=== PATIENT | female | born 1970 | race African-American/Black ===

== ENCOUNTER 2018-02-09 11:19 | Emergency (ER) | payer OTHER, MEDICAID | END 2018-02-09 11:51 | disposition home or self-care (01) | LOC: E/R 11:51 | DX: M54.9 Dorsalgia, unspecified (principal); I10 Essential (primary) hypertension; F17.210 Nicotine dependence, cigarettes, uncomplicated | CPT/HCPCS: 99284; Z7502 ==

== ENCOUNTER 2018-09-07 08:34 | Emergency (ER) | payer OTHER ==
[2018-09-07] MEDS: HYDROmorphONE 2 MG/ML SYG IM (11:20)
[2018-09-07] MEDS: ONDANSETRON (ODT) 4 MG TAB ODT (11:20)
== END 2018-09-07 13:52 | disposition home or self-care (01) ==
LOC: E/R 08:34
DX: M54.16 Radiculopathy, lumbar region (principal); M54.42 Lumbago with sciatica, left side; M54.41 Lumbago with sciatica, right side; R40.2252 Coma scale, best verbal response, oriented, at arrival to emergency department; R40.2142 Coma scale, eyes open, spontaneous, at arrival to emergency department; R40.2362 Coma scale, best motor response, obeys commands, at arrival to emergency department; I10 Essential (primary) hypertension; F17.210 Nicotine dependence, cigarettes, uncomplicated
CPT/HCPCS: 72131; 96372; 99285-25

== ENCOUNTER 2019-02-04 15:29 | Emergency (ER) | payer MEDICAID, OTHER ==
[2019-02-04] MEDS: ACETAMINOPHEN 325 MG TAB PO (17:08)
[2019-02-04] MEDS: IBUPROFEN 400 MG TAB PO (17:08)
[2019-02-04] MEDS: IPRATROPIUM (NEB) 0.5 MG/2.5 ML AMP NEB (17:41)
[2019-02-04] MEDS: ALBUTEROL 0.083% (NEB) 2.5 MG/3 ML AMP NEB (17:41)
[2019-02-04] MEDS: LISINOPRIL 20 MG TAB PO (17:56)
== END 2019-02-04 19:51 | disposition home or self-care (01) ==
LOC: FTE 15:29
DX: R05 Cough (principal); I10 Essential (primary) hypertension; F17.210 Nicotine dependence, cigarettes, uncomplicated; R50.9 Fever, unspecified; R06.02 Shortness of breath; R09.89 Other specified symptoms and signs involving the circulatory and respiratory systems
CPT/HCPCS: 71046; 94664; 99283-25

== ENCOUNTER 2019-03-31 08:29 | Observation (INO) | payer OTHER, MEDICAID ==
[2019-03-31 09:50] LABS: ADD MAN DIFF? NO
[2019-03-31 09:52] LABS: BASOPHILS % 0.5 % (0.0-2.0); EOSINOPHILS # 0.4 10^3/ul (0.0-0.5); EOSINOPHILS % 6.9 % (0.0-7.0); HEMATOCRIT 36.1 % (37.0-47.0); HEMOGLOBIN 11.7 g/dl (12.0-16.0); LYMPHOCYTES # 2.3 10^3/ul (0.8-2.9); LYMPHOCYTES % 36.9 % (15.0-51.0); MEAN CORPUSCULAR HEMOGLOBIN 30.9 pg (29.0-33.0); MEAN CORPUSCULAR HGB CONC 32.4 g/dl (32.0-37.0); MEAN CORPUSCULAR VOLUME 95.3 fl (82.0-101.0); MEAN PLATELET VOLUME 9.4 fl (7.4-10.4); MONOCYTE # 0.6 10^3/ul (0.3-0.9); MONOCYTES % 9.8 % (0.0-11.0); NEUTROPHIL # 2.8 10^3/ul (1.6-7.5); NEUTROPHILS % 45.7 % (39.0-77.0); PLATELET COUNT 347 10^3/UL (140-415); RED BLOOD COUNT 3.79 10^6/ul (4.20-5.40); RED CELL DISTRIBUTION WIDTH 13.2 % (11.5-14.5)
[2019-03-31 09:52] LABS: WHITE BLOOD COUNT 6.1 10^3/ul (4.8-10.8)
[2019-03-31 10:10] LABS: INR 0.98; PROTIME 13.1 Sec (11.9-14.9)
[2019-03-31 10:11] LABS: PARTIAL THROMBOPLASTIN TIME 23.5 Sec (23.0-35.0)
[2019-03-31] MEDS: ONDANSETRON 4 MG INJ IV ×2 (10:14→13:27)
[2019-03-31] MEDS: NITROGLYCERIN (SL) 0.4 MG TAB SL ×2 (10:15→17:54)
[2019-03-31] MEDS: morphine 4 MG/ML VIAL IV (10:15)
[2019-03-31] MEDS: ASPIRIN 325 MG TAB PO (10:15)
[2019-03-31] MEDS: SOD CHLORIDE 0.9% 1,000 ML IV (10:15)
[2019-03-31 10:16] LABS: ALANINE AMINOTRANSFERASE 44 IU/L (13-69); ALBUMIN 3.7 g/dl (3.3-4.9); ALBUMIN/GLOBULIN RATIO 1.12; ALKALINE PHOSPHATASE 82 IU/L (42-121); AMYLASE 42 U/L (11-123); ANION GAP 8 (5-13); ASPARTATE AMINO TRANSFERASE 25 IU/L (15-46); BILIRUBIN,INDIRECT 0.7 mg/dl (0-1.1); BILIRUBIN,TOTAL 0.7 mg/dl (0.2-1.3); BLOOD UREA NITROGEN 9 mg/dl (7-20); CALCIUM 8.8 mg/dl (8.4-10.2); CARBON DIOXIDE 26 mmol/L (21-31); CHLORIDE 107 mmol/L (97-110); CREATINE KINASE 94 IU/L (23-200); CREATININE 0.51 mg/dl (0.44-1.00); Estimated GFR > 60 mL/min (>60); GLUCOSE 148 mg/dl (70-220); LIPASE 47 U/L (23-300); SODIUM 141 mmol/L (135-144)
[2019-03-31 10:26] LABS: B-TYPE NATRIURETIC PEPTIDE 34 PG/ML (0-125); CK INDEX 0.9; CK-MB 0.86 ng/ml (0.0-2.4); TROPONIN-I < 0.012 ng/ml (0.000-0.120)
[2019-03-31] MEDS: SOD CHLORIDE 0.9% 100 ML (11:43)
[2019-03-31] MEDS: IOHEXOL 300MG/ML 150 ML BTL (11:44)
[2019-03-31] MEDS ORDERED: ONDANSETRON 4 MG INJ IV (12:30)
[2019-03-31] MEDS ORDERED: ACETAMINOPHEN 325 MG TAB PO (12:30)
[2019-03-31] MEDS: HYDROmorphONE 1 MG/ML SYG IV (13:27)
[2019-03-31] MEDS ORDERED: HYDROCODONE/APAP (5/325) TAB PO (14:30)
[2019-03-31] MEDS ORDERED: NACL 0.9% 3 ML SYG IV (14:30)
[2019-03-31] MEDS: KETOROLAC 15 MG INJ IV (20:40)
[2019-03-31] MEDS: HEPARIN 5,000 UNIT/1 ML VIAL SC (20:49)
[2019-04-01 05:53] LABS: ADD MAN DIFF? NO
[2019-04-01 06:01] LABS: BASOPHILS % 0.3 % (0.0-2.0); EOSINOPHILS # 0.4 10^3/ul (0.0-0.5); EOSINOPHILS % 5.5 % (0.0-7.0); HEMATOCRIT 34.8 % (37.0-47.0); LYMPHOCYTES # 2.6 10^3/ul (0.8-2.9); LYMPHOCYTES % 40.3 % (15.0-51.0); MEAN CORPUSCULAR HEMOGLOBIN 30.8 pg (29.0-33.0); MEAN CORPUSCULAR HGB CONC 31.6 g/dl (32.0-37.0); MEAN CORPUSCULAR VOLUME 97.5 fl (82.0-101.0); MEAN PLATELET VOLUME 9.3 fl (7.4-10.4); MONOCYTE # 0.7 10^3/ul (0.3-0.9); MONOCYTES % 10.6 % (0.0-11.0); NEUTROPHIL # 2.7 10^3/ul (1.6-7.5); PLATELET COUNT 322 10^3/UL (140-415); RED BLOOD COUNT 3.57 10^6/ul (4.20-5.40); RED CELL DISTRIBUTION WIDTH 13.4 % (11.5-14.5)
[2019-04-01 06:01] LABS: WHITE BLOOD COUNT 6.3 10^3/ul (4.8-10.8)
[2019-04-01 06:16] LABS: ALANINE AMINOTRANSFERASE 40 IU/L (13-69); ALBUMIN 3.4 g/dl (3.3-4.9); ALBUMIN/GLOBULIN RATIO 1.03; ALKALINE PHOSPHATASE 70 IU/L (42-121); ANION GAP 6 (5-13); ASPARTATE AMINO TRANSFERASE 24 IU/L (15-46); BILIRUBIN,INDIRECT 0.4 mg/dl (0-1.1); BILIRUBIN,TOTAL 0.4 mg/dl (0.2-1.3); BLOOD UREA NITROGEN 14 mg/dl (7-20); CALCIUM 8.3 mg/dl (8.4-10.2); CARBON DIOXIDE 27 mmol/L (21-31); CHLORIDE 106 mmol/L (97-110); CREATININE 0.63 mg/dl (0.44-1.00); Estimated GFR > 60 mL/min (>60); GLUCOSE 154 mg/dl (70-220); POTASSIUM 4.2 mmol/L (3.5-5.1); SODIUM 139 mmol/L (135-144); TOTAL PROTEIN 6.7 g/dl (6.1-8.1)
[2019-04-01 06:44] LABS: HEMOGLOBIN A1C 7.6 % (0-5.9)
[2019-04-01] MEDS: LISINOPRIL 20 MG TAB PO (08:48)
[2019-04-01] MEDS: HYDROCHLOROTHIAZIDE 12.5 MG CAP PO (08:48)
[2019-04-01] MEDS: HEPARIN 5,000 UNIT/1 ML VIAL SC (08:54)
[2019-04-01] MEDS: morphine 2 MG INJ IV ×2 (11:30→11:44)
[2019-04-01] MEDS: KETOROLAC 30 MG INJ IV ×2 (11:30→11:44)
== END 2019-04-01 12:30 | disposition home or self-care (01) ==
LOC: E/R 08:29 → 6WM 12:09
DX: R07.89 Other chest pain (principal); I10 Essential (primary) hypertension; F17.210 Nicotine dependence, cigarettes, uncomplicated; E66.9 Obesity, unspecified; Z68.42 Body mass index [BMI] 45.0-49.9, adult
CPT/HCPCS: 71045; 71275; 80053; 82150; 82550; 82553; 83036; 83690; 83880; 84484; 85025; 85610; 85730; 93005; 93306; 96361; 96374; 96375; 99285-25; G0378